=== PATIENT | female | born 1960 | race Caucasian/White ===

== ENCOUNTER 2022-12-21 08:14 | Outpatient (RCR) | payer BC, SELFPAY ==
[2022-12-21 09:03] LABS: Creatinine* 0.6 mg/dL (0.5-1.5); Est. Creatinine Clearance* 73.74; Estimated Glomerular Filt Rate 103 ml/min
--- NOTE | 2023-01-02 12:40 | ONC.NURNOTE ---
Dx: Pancreatic cancer
== END 2023-06-19 23:59 | disposition home or self-care (01) ==
LOC: CCIC 08:14
PROVIDERS: Visit Provider Radiology Radiation Oncology
DX: C25.0 Malignant neoplasm of head of pancreas (principal)
CPT/HCPCS: 36415; 36591; 82565